=== PATIENT | female | born 1960 | race Caucasian/White ===

== ENCOUNTER 2021-10-15 13:40 | Outpatient (CLI) | payer OTHER, SELFPAY ==
--- NOTE | 2021-10-16 23:42 | P.PCNPFT_ITS ---
PFT Procedure Performed PFT Procedure Performed Spirometry with Pre/Post Bronchodilator Plethysmography (Lung Vol) Diffusing Cap (DLCO) Flow Vol Loop PFT Interpretation DOS: 10/15/2021 REQUESTING: Mary Jones [facility] REASON FOR TESTING: Chronic cough PULMONARY FUNCTION TESTS Results are reliable and reproducible. Spirometry: Pre bronchodilator FEV1 is 90% predicted, 2.3 L, normal. Pre bronchodilator FVC 98% predicted, 3.14 L, normal. FEV1 / FVC is 73%, normal. TDH35-49 is 72%, 1.69 L, normal. After bronchodilator administration there is a 4% increase in FEV1, a 4% decrease in FVC and 39% increase in UGT85-38%, 650 mL. There is a significant increase in the VTN52-25%. Lung volumes: total lung capacity 95%, 4.84 L normal. FRC is 94%, 2.69 L, normal. ERV is 81%, 0.84 L, normal. Residual volume 86%, 1.69 L, normal. RV/TLC is normal 35%, within normal range. Airway resistance 222% elevated. Diffusion: DLCO 107%. DLCO/ VA 107% normal. Flow volume loop: Normal. IMPRESSION: Small airways obstruction with a significant improvement after bronchodilator, normal lung volumes and normal diffusion capacity. In the proper clinical setting, this may represent asthma. Vika Mir MD
== END 2021-10-15 13:41 | disposition home or self-care (01) ==
LOC: ANHPFT 13:41
PROVIDERS: PCP Nurse Practitioner Family; Visit Provider Nurse Practitioner
DX: R05.3 Chronic cough (principal)
CPT/HCPCS: 94060; 94726; 94729

== ENCOUNTER 2021-10-23 01:58 | Day surgery (SDC) | payer OTHER, SELFPAY ==
[2021-09-10 14:02] VITALS: BMI 24.5
--- NOTE | 2021-10-22 10:26 | SUR.PREOP ---
1026 called patient and patient has Sutab for her prep. questions answered for the patient.
--- NOTE | 2021-10-22 13:11 | PM.HPGS ---
History of Present Illness History of Present Illness Consent: Risks, benefits, and alternatives have been discussed and questions answered. Patient agrees to proceed with procedure. Chief complaint: GERD, neoplasm screening Narrative: Yolanda Mccauley is a 61 year old female With persistent symptoms of acid reflux. She has been on omeprazole 40 mg per day. He has help with her heartburn, but she has a persistent cough. She has had this cough for many years. She coughs all day long. , in fact cough about 10 or 12 times in the for minute is that I was chatting with her. It seems to originate from her neck, not her lungs. She has had some previous sinus surgery. She has been placed on montelukast and also has been using a spray for allergies. She has started omeprazole and she believes that she may have slight improvement in her coughing. She denies dysphagia. She is also due for colon cancer screening. Review of Systems Review of Systems: All systems reviewed & are unremarkable except as noted in HPI and below PMFSH Past Medical History Medical History COPD (chronic obstructive pulmonary disease) GERD (gastroesophageal reflux disease) Social History Social History Years smoked: 40 Smoking status: Former smoker Tobacco type: cigarettes Alcohol intake: current Drinks per week: 14 Substance use: current Substance use type: marijuana Other substance usage details: [place] Last use: 08/31/21 Living arrangements: alone Spiritual care concerns: No Meds Home Medications and Allergies Home Medications Medication Instructions Recorded Confirmed Type albuterol sulfate 90 mcg/actuation 1 inh inhalation BID PRN Shortness 09/10/21 10/23/21 History aerosol inhaler Of Breath azelastine 137 mcg (0.1 %) nasal 2 spray intranasal DAILY 09/10/21 10/23/21 History spray aerosol buspirone 5 mg tablet 1 tablet PO DAILY 09/10/21 10/23/21 History ergocalciferol (vitamin D2) 1,250 1 cap PO WEEKLY 09/10/21 10/23/21 History mcg (50,000 unit) capsule eszopiclone 3 mg tablet 1 tablet PO HS 09/10/21 10/23/21 History fluoxetine 10 mg capsule 1 cap PO DAILY 09/10/21 10/23/21 History fluoxetine 20 mg capsule 1 cap PO DAILY 09/10/21 10/23/21 History fluticasone propionate 50 2 ea intranasal DAILY 09/10/21 10/23/21 History mcg/actuation nasal spray,suspension montelukast 10 mg tablet 1 tablet PO DAILY 09/10/21 10/23/21 History omeprazole 40 mg capsule,delayed 40 cap PO DAILY 09/10/21 10/23/21 History release Allergies Allergy/AdvReac Type Severity Reaction Status Date / Time No Known Allergies Allergy Mild Verified 10/23/21 07:09 Exam Const: General: alert Orientation/consciousness: patient oriented x3 Resp: Auscultation: clear to auscultation bilaterally Cardio: Rhythm: regular rhythm GI: GI Palp: Yes Soft to palpation and No Tenderness to palpation present (GI) Neuro: General: patient oriented x3 Assessment and Plan Assessment and plan (1) GERD (gastroesophageal reflux disease): Code(s): K21.9 - Gastro-esophageal reflux disease without esophagitis Status: Acute Assessment and Plan: EGD with possible biopsy or dilatation or cautery. (2) Colon cancer screening: Code(s): Z12.11 - Encounter for screening for malignant neoplasm of colon Status: Acute Assessment and Plan: Colonoscopy with possible biopsy or polypectomy or cautery or injection of substances.
[2021-10-23 07:11] VITALS: BP 129/79; PULSE 80; RESP 16; TEMP 36; O2SAT 100; BMI 25.0
[2021-10-23] MEDS: LACTATED RINGERS 1,000 ML 150 ML IV CONT (07:19)
--- NOTE | 2021-10-23 07:32 | P.PNAN_ITS ---
Anes - Initial Pre Proc Eval Procedure: Operation Date: 10/23/21 08:15 Proposed Procedures p Esophagogastroduodenoscopy & Screening Colonoscopy - Robert Lopez MD Date/Time: 10/23/21 07:32 Surgeon: Robert Lopez MD Pre Op Diagnosis: GERD, neoplasm screening Patient Data Age: 61 Gender: F Height: 1.63 m Weight: 66.2 kg Last Vital Signs Temp 36.0 C L 10/23/21 07:11 Pulse 80 10/23/21 07:11 Resp 16 10/23/21 07:11 BP 129/79 10/23/21 07:11 Pulse Ox 100 10/23/21 07:11 O2 Del Method Room Air 10/23/21 07:11 Allergies Allergy/AdvReac Type Severity Reaction Status Date / Time No Known Allergies Allergy Mild Verified 10/23/21 07:09 Home Medications Medication Instructions Recorded Confirmed Type albuterol sulfate 90 mcg/actuation 1 inh inhalation BID PRN Shortness 09/10/21 10/23/21 History aerosol inhaler Of Breath azelastine 137 mcg (0.1 %) nasal 2 spray intranasal DAILY 09/10/21 10/23/21 History spray aerosol buspirone 5 mg tablet 1 tablet PO DAILY 09/10/21 10/23/21 History ergocalciferol (vitamin D2) 1,250 1 cap PO WEEKLY 09/10/21 10/23/21 History mcg (50,000 unit) capsule eszopiclone 3 mg tablet 1 tablet PO HS 09/10/21 10/23/21 History fluoxetine 10 mg capsule 1 cap PO DAILY 09/10/21 10/23/21 History fluoxetine 20 mg capsule 1 cap PO DAILY 09/10/21 10/23/21 History fluticasone propionate 50 2 ea intranasal DAILY 09/10/21 10/23/21 History mcg/actuation nasal spray,suspension montelukast 10 mg tablet 1 tablet PO DAILY 09/10/21 10/23/21 History omeprazole 40 mg capsule,delayed 40 cap PO DAILY 09/10/21 10/23/21 History release Patient hx anesthesia problems: none Family hx anesthesia problems: none Results Review: All pre-operative results and documents have been reviewed as part of the pre- operative evaluation. [facility] Past Medical History Medical History (Updated 10/23/21 @ 07:33 by Mahamed Jones MD) COPD (chronic obstructive pulmonary disease) GERD (gastroesophageal reflux disease) Social History Social History Years smoked: 40 Smoking status: Former smoker Tobacco type: cigarettes Alcohol intake: current Drinks per week: 14 Substance use: current Substance use type: marijuana Other substance usage details: [place] Last use: 08/31/21 Living arrangements: alone Spiritual care concerns: No Anes - Eval Final PreProcedure Day of Procedure 10/23/21 07:32 Patient weight: normal Heart: regular rate and rhythm Lungs: clear to auscultation and normal air movement Airway: Mallampati scale class II Neurological: alert and oriented Last oral intake: >/= 8 hours ASA classification: III Emergent: no Anesthetic plan: proceed Anesthesia type and monitoring: general GIVS Results Review: All pre-operative results and documents have been reviewed as part of the pre- operative evaluation. Informed Consent: The patient's anesthetic plan and its attendant risks and benefits were discussed with the patient/family/POA. Questions were solicited and answers provided to the satisfaction of the patient/family/POA.
--- NOTE | 2021-10-23 08:24 | SUR.OPER ---
EGD ENDED 815, COLONOSCOPY STARTED 823
[2021-10-23 08:35] VITALS: BP 130/79; PULSE 75; RESP 20; O2SAT 94
[2021-10-23 08:45] VITALS: BP 123/75; PULSE 69; RESP 15; O2SAT 100
[2021-10-23 08:55] VITALS: BP 129/83; PULSE 66; RESP 12; O2SAT 99
== END 2021-10-23 09:08 | disposition home or self-care (01) ==
PROVIDERS: PCP Nurse Practitioner Family; Visit Provider Internal Medicine Gastroenterology
PROC: 0DJ08ZZ Inspection of Upper Intestinal Tract, Via Natural or Artificial Opening Endoscopic (ICD-10-PCS; CPT 43235; principal; 2021-10-23 08:15)
DX: Z12.11 Encounter for screening for malignant neoplasm of colon (principal); K63.5 Polyp of colon; K21.9 Gastro-esophageal reflux disease without esophagitis; Z79.51 Long term (current) use of inhaled steroids; J44.9 Chronic obstructive pulmonary disease, unspecified; Z87.891 Personal history of nicotine dependence; F12.90 Cannabis use, unspecified, uncomplicated; R05.9 Cough, unspecified
CPT/HCPCS: 45378; 43235; 87081; 88305; J2704; J7120